=== PATIENT | female | born 1970 | race Hispanic/Latino ===

== ENCOUNTER 2017-10-17 12:46 | Emergency (ER) | payer MEDICAID ==
[2017-10-17 13:18] VITALS: BP 135/73; TEMP 98.2
[2017-10-17 13:26] VITALS: BMI 23.0
--- NOTE | 2017-10-17 13:44 | ED PDOC ---
Arrival/HPI - General Chief Complaint: Upper Extremity Problem/Injury Time Seen by Provider: 10/17/17 13:40 Historian: Patient - History of Present Illness Narrative History of Present Illness (Text): 10/17/17 13:44 Pt is a 47 yr old female with no PMH who presents today with right forearm and wrist pain for the past week. 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 Approximately 4 days ago, she started wearing a wrist brace and took ibuprofen 800mg daily but had no change in status. Denies trauma, travel, altered sensation, fever, elbow pain, neck or shoulder pain or any other complaints 10/17/17 13:49 Time/Duration: 1 week Symptom Onset: Sudden Symptom Course: Unchanged Severity Level: 6 Activities at Onset: Rest Context: Home Past Medical History - Provider Review Nursing Documentation Reviewed: Yes - Travel History Have you recently traveled outside [place] w/in the past 3 mons?: No - Past History Past History: No Previous - Infectious Disease Hx of Infectious Diseases: None - Tetanus Immunization Tetanus Immunization: Unknown - Past Medical History Past Medical History: No Previous - Cardiac Hx Cardiac Disorders: No - Pulmonary Hx Respiratory Disorders: No - Neurological Hx Neurological Disorder: No - HEENT Hx HEENT Disorder: No - Renal Hx Renal Disorder: No - Endocrine/Metabolic Hx Endocrine Disorders: No - Hematological/Oncological Hx Blood Disorders: No - Integumentary Hx Dermatological Disorder: No - Musculoskeletal/Rheumatological Hx Musculoskeletal Disorders: No - Gastrointestinal Hx Gastrointestinal Disorders: No - Genitourinary/Gynecological Hx Genitourinary Disorders: Yes Hx Urinary Tract Infection: Yes - Psychiatric Hx Psychophysiologic Disorder: No Hx Substance Use: No - Past Surgical History Past Surgical History: No Previous - Anesthesia Hx Anesthesia: No Hx Anesthesia Reactions: No - Suicidal Assessment Feels Threatened In Home Enviroment: No Family/Social History - Physician Review Nursing Documentation Reviewed: Yes Family/Social History: Unknown Family HX Smoking Status: Current Some Days Smoker Hx Alcohol Use: Yes Hx Substance Use: No Hx Substance Use Treatment: No Allergies/Home Meds Allergies/Adverse Reactions: Allergies No Known Allergies Allergy (Verified 10/17/17 13:26) Review of Systems - Physician Review All systems were reviewed & negative as marked: Yes - Review of Systems Constitutional: Normal Eyes: Normal ENT: Normal Respiratory: Normal Cardiovascular: Normal Gastrointestinal: Normal Genitourinary Female: Normal Musculoskeletal: Normal, Joint Swelling (right wrist) Skin: Normal Neurological: Normal Endocrine: Normal Hemo/Lymphatic: Normal Psychiatric: Normal Physical Exam Vital Signs Reviewed: Yes Vital Signs Temp Pulse Resp BP Pulse Ox 10/17/17 14:49 89 17 97 10/17/17 13:17 98.2 F 84 18 135/73 98 Temperature: Afebrile Blood Pressure: Normal Pulse: Regular Respiratory Rate: Normal Appearance: Positive for: Well-Appearing, Non-Toxic, Comfortable Pain Distress: None Mental Status: Positive for: Alert and Oriented X 3 - Systems Exam Head: Present: Atraumatic, Normocephalic Pupils: Present: PERRL Extroacular Muscles: Present: EOMI Conjunctiva: Present: Normal Mouth: Present: Moist Mucous Membranes Neck: Present: Normal Range of Motion Respiratory/Chest: Present: Clear to Auscultation, Good Air Exchange. No: Respiratory Distress, Accessory Muscle Use Cardiovascular: Present: Regular Rate and Rhythm, Normal S1, S2. No: Murmurs Abdomen: No: Tenderness, Distention, Peritoneal Signs Back: Present: Normal Inspection Upper Extremity: Present: Normal Inspection, Normal ROM, NORMAL PULSES, Tenderness (Right lateral forearm and wrist), Swelling (Right lateral forearm and wrist), Neurovascularly Intact, Capillary Refill < 2s. No: Cyanosis, Edema , Deformity Lower Extremity: Present: Normal Inspection. No: Edema Neurological: Present: GCS=15, CN II-XII Intact, Speech Normal Skin: Present: Warm, Dry, Normal Color. No: Rashes Psychiatric: Present: Alert, Oriented x 3, Normal Insight, Normal Concentration Medical Decision Making ED Course and Treatment: 10/17/17 13:51 Pt is a 47 yr old female with no PMH who presents today with right forearm and wrist pain for the past week. Smoker, no travel or OCP On exam, Positive roberto sign and weak motor fucntion 4/5 Plan right forearm and wrist XR assess and dispo Progress note 10/17/17 14:31 XR unremarkable DC with ibuprofen - RAD Interpretation Radiology Orders: 10/17/17 13:53 FOREARM RT FALL PROTOCOL [RAD] Stat Disposition/Present on Arrival - Present on Arrival Any Indicators Present on Arrival: Yes History of DVT/PE: No History of Uncontrolled Diabetes: No Urinary Catheter: No History of Decub. Ulcer: No History Surgical Site Infection Following: None - Disposition Have Diagnosis and Disposition been Completed?: Yes Diagnosis: De Quervain's disease (tenosynovitis), Wrist pain Disposition: HOME/ ROUTINE Disposition Time: 14:32 Patient Plan: Discharge Condition: STABLE Discharge Instructions (ExitCare): De Quervain's Tenosynovitis Additional Instructions: [place] take the ibuprofen every b6 hrs with food to relieve pain and inflammation. Follow up with your PMD in the next few days to ask about physical therapy. If you experience fever, increased pain and loss of function, return to the ER. Be Well Prescriptions: Ibuprofen [Motrin Tab] 600 mg PO Q6 PRN 5 Days #20 tab PRN Reason: pain/fever Referrals: Ab Isaacs, [Primary Care Provider] - Follow up with primary Forms: [facility] ([place]), WORK NOTE
--- NOTE | 2017-10-17 14:31 | RAD ---
PROCEDURE: Radiographs of the Right Forearm HISTORY: wrist pain COMPARISON: None available. TECHNIQUE: Frontal and lateral views obtained. FINDINGS: BONES: No fracture or destructive lesion. JOINT SPACES: Unremarkable. OTHER FINDINGS: None. IMPRESSION: Unremarkable radiographs of the right forearm.
[2017-10-17 14:50] VITALS: PULSE 89; RESP 17; O2SAT 97
== END 2017-10-17 14:49 | disposition home or self-care (01) ==
LOC: ED 12:46
DX: M65.4 Radial styloid tenosynovitis [de Quervain] (principal); M25.531 Pain in right wrist

== ENCOUNTER 2018-01-06 14:28 | Emergency (ER) | payer MEDICAID ==
[2018-01-06 14:28] VITALS: BMI 23.0
== END 2018-01-06 14:58 | disposition left against medical advice (07) ==
LOC: ED 14:28
DX: Z02.89 Encounter for other administrative examinations (principal); R06.02 Shortness of breath